=== PATIENT | female | born 1990 | race Caucasian/White ===

== ENCOUNTER 2017-02-14 21:06 | Observation (INO) | payer SELFPAY ==
[2017-02-14] MEDS ORDERED: MIDAZOLAM 2 MG/2 ML VIAL IVP ONE (21:23)
[2017-02-14] MEDS ORDERED: NS 1,000 ML IV ONE (21:24)
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
[2017-02-14] MEDS ORDERED: HYDROmorphONE/DILAUDID 1 MG/ML SYR IVP ONE (21:35)
[2017-02-14] MEDS ORDERED: HYDROCOD/APAP 5/325 PREPACK#6 BTL TAKEHOME ONE (23:59)
[2017-02-15 00:05] LABS: % IMMATURE GRANULYOCYTES 0.3 % (0.0-1.1); ABSOLUTE IMMATURE GRANULOCYTES 0.03 10^3/uL (0.00-0.10); ADD DIFF? NO; ADD MORPH? NO; ADD SCAN? NO; ATYPICAL LYMPHOCYTE FLAG 20 (0-99); FRAGMENT RBC FLAG 20 (0-99); HEMATOCRIT 42.9 % (38.0-47.0); HEMOGLOBIN 14.5 g/dL (12.6-16.3); LEFT SHIFT FLG 0 (0-99); LIPEMIA HEMOLYSIS FLAG 90 (0-99); MEAN CELL HEMOGLOBIN 31.5 pg (27.9-34.1); MEAN CELL HEMOGLOBIN CONCENTR. 33.8 g/dL (32.4-36.7); MEAN CELL VOLUME 93.1 fL (81.5-99.8); MEAN PLATELET VOLUME 8.5 fL (8.7-11.7); PLATELET CLUMPS FLAG 10 (0-99); PLATELET COUNT 292 10^3/uL (150-400); RED BLOOD CELL COUNT 4.61 10^6/uL (4.18-5.33); RED CELL DISTRIBUTION WIDTH 11.5 % (11.5-15.2)
[2017-02-15 00:13] LABS: INR 1.04 (0.83-1.16); PROTIME(PATIENT) 13.5 SEC (12.0-15.0)
[2017-02-15 00:14] LABS: APTT 28.2 SEC (23.0-38.0)
[2017-02-15] MEDS ORDERED: LORazepam 2 MG/ML INJ IVP ONE (00:20)
[2017-02-15] MEDS ORDERED: IOPAMIDOL (ISOVUE-300) 100 ML BTL ONE (00:25)
[2017-02-15] MEDS ORDERED: IOPAMIDOL (ISOVUE 370) 100 ML BTL IV ONE ×2 (00:25→01:01)
[2017-02-15 00:30] LABS: ANION GAP 12 mEq/L (8-16); CALCIUM 8.6 mg/dL (8.5-10.4); CARBON DIOXIDE 24 mEq/l (22-31); CHLORIDE 109 mEq/L (97-110); CREATININE 0.7 mg/dL (0.6-1.0); ETHANOL SERUM 146 mg/dL (0-10); GLOMERULAR FILTRATION RATE > 60; GLUCOSE 95 mg/dL (70-100); POTASSIUM 4.1 mEq/L (3.5-5.2); SODIUM 145 mEq/L (134-144)
[2017-02-15] MEDS ORDERED: HALOPERIDOL LACT 5 MG/ML INJ IVP ONE (00:31)
[2017-02-15] MEDS ORDERED: HALOPERIDOL LACT 5 MG/ML INJ ONE (00:34)
[2017-02-15] MEDS ORDERED: MIDAZOLAM 2 MG/2 ML VIAL ONE (00:40)
[2017-02-15] MEDS ORDERED: NS 1,000 ML IV ONE (01:38)
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
[2017-02-15] MEDS: ENOXAPARIN 40 MG/0.4 ML SYR SC SCH (10:19)
[2017-02-15] MEDS: oxyCODONE IR 5 MG TAB PO PRN ×3 (11:42→18:43)
[2017-02-15] MEDS ORDERED: KETOROLAC 15 MG/1 ML SDV IVP SCH (12:00)
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
[2017-02-15] MEDS: ACETAMINOPHEN 325 MG TAB PO PRN ×2 (16:08→21:06)
--- NOTE | 2017-02-15 17:39 | BCON ---
[ rep st] ORTHOPEDIC CONSULTATION Patient Name: JAQUELINE GRESHAM N-Number: [id number] Date of : 1990 Patient Status: Inpatient Attending Doctor: Jason Stein MD Consulting Doctor: Cristian Grimaldo MD Date of service: 02/15/17 CPT codes: CPT code 93876 ER visit requiring admission or initial inpatient visit, level three CPT code 27840 Closed treatment of a tibial plateau fracture Modifier 57 Decision for surgery CHIEF COMPLAINT: Right knee dislocation HISTORY OF PRESENT ILLNESS: This is a very pleasant 26 year old female with a significant history for sustaining a right knee dislocation on 02/14/17. Following the injury, she was brought to the [facility] ED and underwent a closed reduction and was then placed into a knee immobilizer. Post-reduction radiographs and a CT angiogram of her right lower extremity also demonstrated a right proximal tibial metaphysis fracture (incomplete, non-displaced). PROBLEM LIST: Right knee dislocation, right proximal tibial metaphysis fracture PAST MEDICAL HISTORY: Asthma, anxiety SURGERIES: None SOCIAL HISTORY: Homelessness, smoker FAMILY HISTORY: Noncontributory CURRENT MEDICATIONS: None ALLERGIES: Ibuprofen and Latex REVIEW OF SYSTEMS Constitutional: No unexpected weight loss, weight gain, fevers, chills, or fatigue. Eyes: No blurred or double vision, no eye pain, redness or swelling. ENT: No headaches, difficulty swallowing, nose bleeds, tinnitus, or earaches. Cardiovascular: No chest pain, palpitations, fainting or murmurs. Respiratory: No shortness of breath, wheezing, cough, of difficulty breathing. GI: No reflux, no nausea or vomiting, no constipation, diarrhea, or bloody stools. Genitourinary: No urinary frequency or urgency, no pain with urination. Skin: No skin changes, rashes, itching, or redness. Neurologic: No unsteadiness of gait, no dizziness, tremors, or seizures. Psychiatric: No nervousness, anxiety, depression, or hallucinations. Hematologic: No increased bleeding or easy bruising. Endocrine: No excessive thirst or urination and no heat or cold intolerances. Allergic: No reactions to food or environment. Musculoskeletal: See history of present illness. PHYSICAL EXAM General: No apparent distress. Orientation: Alert and oriented times three Mood and affect: Calm, appropriate. Gait and station: TAMMY Skin: Warm, dry. Lymph: Non tender neck, axillary and inguinal nodes. Chest: Equal expansion, no pain with deep breaths, speaks in coherent sentences. Cardiovascular: Regular pulse. Abdomen: Soft, non-tender, no masses, no palpable hernias. Bilateral knee examination Inspection/palpation: Right: Large effusion. TTP diffusely throughout the knee Left: Soft, non-tender. Range of motion Extension-Flexion: TAMMY / 0-150 / 0-150 Strength (R / L / Normal) Muscle(s) Quadriceps (L3-L4): 3 / / 5 Hamstrings (L4-L5): 3 / 5 / 5 Tibialis anterior (L4): 3 / 5 / 5 EHL (L5): / 5 FHL (S1): / 5 Gastroc-soleus (S1): 5 Sensory (R / L / Normal) Dermatomes L1 (groin): + / + / + L2 (medial upper thigh): + / + / + L3 (anterior thigh): + / + / + L4 (medial ankle): + / + / + L5 (first dorsal web space): + / + / + S1 (lateral border of foot): + / + / + Peripheral nerves Superficial peroneal: + / + / + Deep peroneal: + / + / + Sural: + / + / + Tibial: + / + / + Saphenous: + / + / + Vascular exam (R / L / Normal) Dorsalis pedis: 2+ / 2+ / 2+ Tibialis posterior: 2+ / 2+ / 2+ Medical decision making Data Imaging study: right knee radiographs, three views Action: interpreted Interpretation / pertinent findings: successful reduction of anterior knee dislocation, non-displaced proximal tibia metaphysis fracture Imaging study: CT angiogram of right lower extremity Action: interpreted Interpretation / pertinent findings: posterior non-displaced partial proximal tibia metaphysis fracture Diagnoses New diagnosis: right knee anterior dislocation, right non-displaced proximal tibia metaphysis fracture Work-up planned: yes: see assessment and plan Assessment and plan This is a 26 year old female with a right knee dislocation s/p closed reduction and knee immobilizer application and a right proximal tibial metaphysis fracture (incomplete and non-displaced) after injury on 02/14/17 - WBAT on RLE in the knee immobilizer with assistive device - Follow up in 2 weeks with repeat right knee radiographs upon arrival to clinic out of knee immobilizer Time I have spent 80 minutes of [id number] time with the patient during this visit. Over fifty percent of this time was spent counseling the patient on the risks, benefits, alternatives, and complications of both non-operative and operative forms of treatment as outlined above. /[id number]/MODL MTDD
[2017-02-16] MEDS: oxyCODONE IR 5 MG TAB PO PRN ×3 (01:24→12:10)
[2017-02-16] MEDS: ACETAMINOPHEN 325 MG TAB PO PRN ×2 (05:29→14:15)
[2017-02-16 07:40] VITALS: RESP 14
[2017-02-16] MEDS: ENOXAPARIN 40 MG/0.4 ML SYR SC SCH (08:02)
[2017-02-16] MEDS ORDERED: NICOTINE 14 MG/24 HR PATCH TD PRN (09:53)
[2017-02-16 11:34] VITALS: BP 138/92; PULSE 80; TEMP 98.4; O2SAT 99
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
== END 2017-02-16 14:57 | disposition home or self-care (01) ==
LOC: EDUNIT# → F3N 02-15 09:06
PROVIDERS: ADMIT Surgery; ATTEND Surgery
PROC: 0SSCXZZ Reposition Right Knee Joint, External Approach (ICD-10-PCS; principal; 2017-02-15)
DX: S83.106A Unspecified dislocation of unspecified knee, initial encounter (principal); S82.191A Other fracture of upper end of right tibia, initial encounter for closed fracture; X58.XXXA Exposure to other specified factors, initial encounter; R29.6 Repeated falls; Z91.81 History of falling; F17.210 Nicotine dependence, cigarettes, uncomplicated; Z59.0 Homelessness
CPT/HCPCS: 92523-GN; 96374; 97161-GP; 97166-GO; 97535-GO; G0378; G0480; J1170; J1650; J2060; J2250; L0172; L1830; Q9967

== ENCOUNTER 2017-02-20 11:37 | Emergency (ER) | payer MEDICAID ==
--- NOTE | 2017-02-20 11:46 | EDPHY ---
H & P Time Seen by Provider: 02/20/17 11:37 HPI/ROS: CHIEF COMPLAINT: Right knee pain HISTORY OF PRESENT ILLNESS: The patient is a 26-year-old homeless female who comes to the emergency department by EMS complaining of right-sided knee pain and swelling. She was seen here and admitted to the hospital 1 week ago after a fall and posterior knee dislocation. Her knee was successfully relocated and no evidence of vascular injury was found on CT angiogram. She was treated with pain medication and a straight leg brace and discharged to follow up with Dr. Harmon in 1-2 weeks weightbearing as tolerated. She states that last night a friend was trying to help her stand up and instead fell on top of her leg. She has had increased pain since that time. She was given fentanyl by EMS in route. She has strong pulses and normal movement and sensation in her foot. She denies any other injuries. REVIEW OF SYSTEMS: Constitutional: denies: chills, fever, recent illness, recent injury EENTM: denies: blurred vision, double vision, nose congestion Respiratory: denies: cough, shortness of breath Cardiac: denies: chest pain, irregular heart rate, lightheadedness, palpitations Gastrointestinal/Abdominal: denies: abdominal pain, diarrhea, nausea, vomiting, blood streaked stools Genitourinary: denies: dysuria, frequency, hematuria, pain Musculoskeletal: See HPI Skin: denies: lesions, rash, jaundice, bruising Neurological: denies: headache, numbness, paresthesia, tingling, dizziness, weakness Hematologic/Lymphatic: denies: blood clots, easy bleeding, easy bruising Immunologic/allergic: denies: HIV/AIDS, transplant EXAM: GENERAL: Well-appearing, well-nourished and in no acute distress. HEAD: Atraumatic, normocephalic. EYES: Pupils equal round and reactive to light, extraocular movements intact, sclera anicteric, conjunctiva are normal. ENT: TMs normal, nares patent, oropharynx clear without exudates. Moist mucous membranes. NECK: Normal range of motion, supple without lymphadenopathy or JVD. LUNGS: Breath sounds clear to auscultation bilaterally and equal. No wheezes rales or rhonchi. HEART: Regular rate and rhythm without murmurs, rubs or gallops. ABDOMEN: Soft, nontender, normoactive bowel sounds. No guarding, no rebound. No masses appreciated. BACK: No CVA tenderness, no spinal tenderness, step-offs or deformities EXTREMITIES: Right knee pain, swelling and bruising, strong pulses, normal sensation NEUROLOGICAL: Cranial nerves II through XII grossly intact. Normal speech, normal gait. 5/5 strength, normal movement in all extremities, normal sensation PSYCH: Normal mood, normal affect. SKIN: Warm, dry, normal turgor, no visible rashes or lesions. Source: Patient Exam Limitations: No limitations - Medical/Surgical History Hx Asthma: Yes Hx Chronic Respiratory Disease: No Hx Diabetes: No Hx Cardiac Disease: No Hx Renal Disease: No Hx Cirrhosis: No Hx Alcoholism: No Hx HIV/AIDS: No Hx Splenectomy or Spleen Trauma: No Other PMH: scoliosis, and states hx of ovarian cyst 6-9 months ago. ANXIETY, asthma - Family History Significant Family History: No pertinent family hx - Social History Smoking Status: Current every day smoker Alcohol Use: Heavy Drug Use: Marijuana Constitutional: Initial Vital Signs Temperature (C) 36.5 C 02/20/17 11:44 Heart Rate 89 02/20/17 11:44 Respiratory Rate 18 02/20/17 11:44 Blood Pressure 129/82 H 02/20/17 11:44 O2 Sat (%) 100 02/20/17 11:44 O2 Delivery Mode Nasal Cannula O2 (L/minute) 2 Allergies/Adverse Reactions: ibuprofen Allergy (Intermediate, Verified 02/14/17 21:13) latex [Latex] Allergy (Intermediate, Verified 02/14/17 21:13) Home Medications: Medication Instructions Recorded Hydrocodone/APAP 5/325 [Spencer 1 each PO Q4-6PRN PRN #14 tab 02/14/17 5/325 (*)] Herbals/Supplements -Info Only 1 ea PO DAILY 02/15/17 oxyCODONE IR [Oxycodone Ir (*)] 5 mg PO Q3-4PRN PRN #50 tab 02/16/17 Medical Decision Making - Diagnostics Imaging: Discussed imaging studies w/ call center assistant Radiologist ED Course/Re-evaluation: The patient refused x-rays because she had not receive narcotics. She did received fentanyl by EMS. She became very angry and began screaming at the nurses. She asked to leave. She refused further workup or treatment. 1:15 p.m. the patient did eventually agree to x-rays after police arrived. The x-rays show a small tibial metaphysis fracture unchanged from previous. This was seen in consultation by Dr. Grimaldo who plans to follow up with her in clinic. She has not been wearing her brace. We have placed back on her. She is weight-bearing as tolerated. She called police from her room and they are here and will take her to [facility] because she has a warrant. Differential Diagnosis: Partial list of the Differential diagnosis considered include but were not limited to; contusion, DVT, dislocation, fracture and although unlikely based on the history and physical exam, I also considered vascular injury, nerve injury. - Data Points Medications Given: Discontinued Medications Ketorolac Tromethamine (Toradol) 30 mg IVP EDNOW ONE Stop: 02/20/17 11:56 Last Admin: 02/20/17 12:04 Dose: 30 mg Departure - Departure Disposition: Against Medical Advice Clinical Impression: Right knee pain Qualifiers: Chronicity: acute Qualified Code(s): M25.561 - Pain in right knee Condition: Fair Instructions: Knee Pain (ED) Referrals: Cristian Grimaldo MD [Medical Doctor] - 2-3 days without fail
[2017-02-20 11:47] VITALS: BP 129/82; PULSE 89; RESP 18; TEMP 97.7; O2SAT 100
[2017-02-20] MEDS ORDERED: KETOROLAC 30 MG/1 ML SDV ONE (11:51)
[2017-02-20] MEDS ORDERED: KETOROLAC 30 MG/1 ML SDV IVP ONE (11:55)
== END 2017-02-20 13:23 | disposition left against medical advice (07) ==
LOC: EDUNIT#
DX: M25.561 Pain in right knee (principal); J45.909 Unspecified asthma, uncomplicated; F17.200 Nicotine dependence, unspecified, uncomplicated; Z91.040 Latex allergy status
CPT/HCPCS: 96374; J1885